=== PATIENT | male | born 1965 | race Caucasian/White ===

== ENCOUNTER 2020-10-21 11:41 | Emergency (ER) | payer MEDICAID ==
[~2020-10-21] VITALS: Ht 167.6 cm; Wt 70.8 kg
[2020-10-21 11:50] VITALS: BP 152/100
--- NOTE | 2020-10-21 11:53 | NUR ---
THE PATIENT BIBS FOR C/O ABRASION TO L NECK S/P CUT WHILE SHAVING L EARACHE S/P CLEANING EAR. RATES EARACHE 04/01. WILL CONTINUE TO MONITOR THE PATIENT.
[2020-10-21] MEDS ORDERED: GELATIN SPONGE,ABSORBABLE 1 SPONGE SPONGE TP ONE (12:17)
[2020-10-21] MEDS ORDERED: OFLO5DRO5 EACH EAR (12:51)
--- NOTE | 2020-10-21 12:55 | NUR ---
Patient discharged to home in stable condition. Written and verbal after care instructions given. Patient verbalizes understanding of instruction.
== END 2020-10-21 12:56 | disposition home or self-care (01) ==
LOC: ER 11:46
DX: S11.91XA Laceration without foreign body of unspecified part of neck, initial encounter (principal); H73.892 Other specified disorders of tympanic membrane, left ear; W26.8XXA Contact with other sharp object(s), not elsewhere classified, initial encounter; Y93.89 Activity, other specified; Y92.89 Other specified places as the place of occurrence of the external cause; Y99.8 Other external cause status
CPT/HCPCS: 99283; A6403